=== PATIENT | male | born 1970 | race Caucasian/White ===

== ENCOUNTER → 2020-10-12 09:13 | Outpatient (BNVA) | payer SELFPAY | PROVIDERS: Visit Provider Counselor Professional | DX: F25.0 Schizoaffective disorder, bipolar type (principal) | CPT/HCPCS: 90832 ==

== ENCOUNTER → 2021-09-05 09:28 | Outpatient (BNVA) | payer BC, SELFPAY | PROVIDERS: Visit Provider Counselor Professional | DX: F25.0 Schizoaffective disorder, bipolar type (principal) | CPT/HCPCS: 90832 ==

== ENCOUNTER → 2021-09-29 08:49 | Outpatient (BNVA) | payer BC, SELFPAY | PROVIDERS: Visit Provider Psychiatry & Neurology Psychiatry | DX: F41.1 Generalized anxiety disorder (principal); F43.12 Post-traumatic stress disorder, chronic; F15.21 Other stimulant dependence, in remission | CPT/HCPCS: 99214 ==

== ENCOUNTER → 2021-11-07 10:21 | Outpatient (BNVA) | payer BC, SELFPAY | PROVIDERS: Visit Provider Counselor Professional | DX: F25.0 Schizoaffective disorder, bipolar type (principal) | CPT/HCPCS: 90832 ==

== ENCOUNTER → 2021-12-05 08:01 | Outpatient (BNVA) | payer BC, SELFPAY | PROVIDERS: Visit Provider Psychiatry & Neurology Psychiatry | DX: F41.1 Generalized anxiety disorder (principal); F43.12 Post-traumatic stress disorder, chronic; F15.21 Other stimulant dependence, in remission | CPT/HCPCS: 99213 ==

== ENCOUNTER → 2022-02-09 13:33 | Outpatient (BNVA) | payer BC, SELFPAY | PROVIDERS: Visit Provider Counselor Professional | DX: F41.1 Generalized anxiety disorder (principal); F43.12 Post-traumatic stress disorder, chronic | CPT/HCPCS: 90832 ==

== ENCOUNTER → 2022-03-29 07:58 | Outpatient (BNVA) | payer BC, SELFPAY | PROVIDERS: Visit Provider Psychiatry & Neurology Psychiatry | DX: F43.12 Post-traumatic stress disorder, chronic (principal); F15.21 Other stimulant dependence, in remission; F41.1 Generalized anxiety disorder | CPT/HCPCS: 99213 ==